=== PATIENT | male | born 1970 | race Caucasian/White ===

== ENCOUNTER 2021-09-10 12:38 | Emergency (ER) | payer OTHER ==
[~2021-09-10] VITALS: Ht 182.8 cm; Wt 100.0 kg
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
[2021-09-10 14:01] VITALS: BP 138/82
== END 2021-09-10 14:08 | disposition home or self-care (01) ==
LOC: ER FS 12:39
DX: S00.81XA Abrasion of other part of head, initial encounter (principal); S60.511A Abrasion of right hand, initial encounter; S50.312A Abrasion of left elbow, initial encounter; S40.212A Abrasion of left shoulder, initial encounter; E11.9 Type 2 diabetes mellitus without complications; V49.40XA Driver injured in collision with unspecified motor vehicles in traffic accident, initial encounter
CPT/HCPCS: 70450; 71045; 73030; 73080; 73130